=== PATIENT | female | born 1970 | race Hispanic/Latino ===

== ENCOUNTER 2019-10-31 06:20 | Day surgery (SDC) | payer BC ==
[2019-10-31] MEDS ORDERED: SODIUM CHLORIDE 0.9% 500 ML 500 ML IV SCH (07:00)
[2019-10-31 07:14] LABS: Eosinophils # (Auto) 0.2 K/mm3 (0.0-0.4); Eosinophils % (Auto) 4.7 % (0.0-4.3); Hematocrit 36.8 % (30.3-42.9); Hemoglobin 12.5 gm/dl (10.1-14.3); Lymphocytes # (Auto) 0.8 K/mm3 (1.2-5.4); Lymphocytes % (Auto) 21.5 % (13.4-35.0); Mean Corpuscular HGB Conc 34 % (30-34); Mean Corpuscular Volume 99 fl (79-97); Monocytes # (Auto) 0.4 K/mm3 (0.0-0.8); Monocytes % (Auto) 10.8 % (0.0-7.3); Platelet Count 297 K/mm3 (140-440); Red Blood Count 3.74 M/mm3 (3.65-5.03); Red Cell Distribution Width 12.9 % (13.2-15.2)
[2019-10-31 07:29] LABS: BUN/Creatinine Ratio 17; Blood Urea Nitrogen 12 mg/dL (7-17); Calcium 8.9 mg/dL (8.4-10.2); Hemolysis Index 31
[2019-10-31 07:31] LABS: INR 0.92 (0.87-1.13); Partial Thromboplastin Time 24.1 Sec. (24.2-36.6)
[2019-10-31] MEDS ORDERED: HEPARIN 10,000 UNITS/10 ML VIAL ONE (08:19)
[2019-10-31] MEDS ORDERED: HEPARIN/NS 5000 UNIT/500ML 1,000 ML IR ONE (08:19)
[2019-10-31] MEDS ORDERED: NITROGLYCERIN SYRINGE 0 ML ONE (08:19)
[2019-10-31] MEDS ORDERED: VERAPAMIL 5 MG/2 ML INJ ONE (08:19)
[2019-10-31] MEDS ORDERED: MIDAZOLAM 2 MG/2 ML INJ ONE (08:20)
[2019-10-31] MEDS ORDERED: LIDOCAINE 1%/EPINEPHRINE 1:100,000 VIAL (20 ML) INFILTRATI ONE (08:20)
[2019-10-31] MEDS ORDERED: fentaNYL 100 MCG/2 ML INJ ONE (08:20)
--- NOTE | 2019-10-31 11:03 | Short Stay Summary ---
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 She presents for angiography. - History Principal diagnosis: Pancreaticoduodenal artery aneurysm H&P: obtained from office - Allergies and Medications Current Medications: Allergies Penicillins Allergy (Intermediate, Verified 10/31/19 06:50) Rash Home Medications Medication Instructions Recorded Confirmed Last Taken Type Aspirin [Adult Aspirin] 81 mg PO DAILY 10/31/19 10/31/19 10/31/19 History Levothyroxine [Synthroid] 50 mcg PO QAM 10/31/19 10/31/19 10/31/19 History Norethindrone [Norlyda] 0.35 mg PO DAILY 10/31/19 10/31/19 10/31/19 History ZOLMitriptan [Zolmitriptan] 5 mg PO DAILY PRN 10/31/19 10/31/19 2 Weeks Ago History ~10/17/19 Active Medications Sodium Chloride (Nacl 0.9% 500 Ml) 500 mls @ 50 mls/hr IV DIRECT ANNALISE Last Admin: 10/31/19 07:36 Dose: 50 mls/hr Documented by: - Physical exam General appearance: no acute distress Lungs: Normal air movement Gastrointestinal: normal Extremities: normal temperature, normal color - Brief post op/procedure progress note Date of procedure: 10/31/19 Pre-op diagnosis: Visceral artery aneurysm Post-op diagnosis: same Procedure: 1. Ultrasound-guided access of the right common femoral artery. 2. Angiography of the right lower extremity. 3. Selection of the celiac artery with angiography. 4. Selection of the SMA with angiography Anesthesia: local (With conscious sedation) Surgeon: TARIQ LYNCH Estimated blood loss: minimal Condition: stable - Hospital course Hospital course: Patient tolerated the procedure well. No immediate postprocedural complication. 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 Remove pressure dressing on 11/01/2019 in a.m. Try to be gentle with right leg for 1 week. If you cough or bear down on toilet, apply pressure to right groin to prevent undue stress.) Diet: regular Wound: keep clean and dry Follow up with: MAXIMO RYAN [Other] - 7 Days
--- NOTE | 2019-10-31 11:04 | Operative Report ---
Operative Report Operative Report: EXAM: 1. Ultrasound-guided access of the right common femoral artery. 2. Angiography of the right lower extremity. 3. Selection of the celiac artery with angiography. 4. Selection of the SMA with angiography DATE: 10/31/2019 COMBINATION WELDER APPRENTICE: TARIQ LYNCH MD INDICATION: Visceral artery aneurysm and visceral artery stenosis requiring diagnostic angiography for further evaluation. MEDICATIONS: Please see nursing report for full details. DEVICES: No specialty devices required CONTRAST: Please see Link And Link Knitting Machine Operator report for full details PROCEDURE: The risks, benefits, and alternatives were discussed with the patient; written informed consent was obtained. The right common femoral artery was prepped and draped in a sterile fashion. Ultrasound was used to evaluate the right common femoral artery which was patent. Under direct ultrasound guidance, the right common femoral artery was accessed with a 21-gauge micropuncture needle. 0.018 inch wire was passed into the aorta. Needle was exchanged for transitional dilator. Wire was exchanged for a 0.035 inch wire. Transitional dilator was exchanged for a 5 Frisian sheath. Digital subtraction angiography was performed demonstrating an appropriate puncture, above the bifurcation and below the inferior epigastric artery. The right external iliac artery, common femoral artery, and profundofemoral artery were patent. The ostium of the right superficial femoral artery had a mild stenosis. The rest of the visualized superficial femoral artery was patent. SOS2 catheter was advanced over the wire and used to select the celiac artery. Digital subtraction angiography was performed with hand and power injection. Catheter was then used to select the SMA. Digital subtraction angiography was performed with hand and multiple obliquities with power injection. After reviewing the images, I determined that we had adequate diagnostic images for evaluating the visceral aneurysm. Sheath was then removed and pressure was held until hemostasis was achieved. Sterile dressing applied. Pressure dressing applied. Patient tolerated the procedure well. No immediate postprocedural complication. FINDINGS: Celiac artery: The celiac artery was aneurysmal with the suggestion of a small dissection flap noted within it on both injections. The splenic artery was patent and normal in caliber. The common hepatic artery was atretic in size and appeared to have some flow provided through the dorsal pancreatic artery as well as the gastroduodenal artery. There is some zoroastrianism of size in the right hepatic artery, but both the left and right hepatic arteries were not normal in size. SMA: Superior mesenteric artery was patent with pancreaticoduodenal hypertrophic branches providing flow from the superior mesenteric artery to the gastroduodenal artery and subsequently to the hepatic arteries and splenic arteries. The common hepatic artery was atretic as noted above. There is a 6 to 7 mm aneurysm arising from 1 of the pancreaticoduodenal branches. The aneurysm appears to be coming off of a side branch and not the main branch, making it amenable to coil embolization. IMPRESSION: 1. Successful selection of the celiac artery and SMA with diagnostic angiography as described above. Patient will require coil embolization of the aneurysm arising from the pancreaticoduodenal artery side branch.
[2019-10-31 13:53] VITALS: BP 105/63
== END 2019-10-31 14:15 | disposition home or self-care (01) ==
LOC: CATHLABREC 06:20
PROVIDERS: ATTEND Radiology Diagnostic Radiology
DX: K55.1 Chronic vascular disorders of intestine (principal); I77.4 Celiac artery compression syndrome; I72.8 Aneurysm of other specified arteries; Z88.0 Allergy status to penicillin; Z79.899 Other long term (current) drug therapy; Z79.82 Long term (current) use of aspirin; I77.79 Dissection of other specified artery; E03.9 Hypothyroidism, unspecified; Z98.890 Other specified postprocedural states; Z82.49 Family history of ischemic heart disease and other diseases of the circulatory system; Z82.5 Family history of asthma and other chronic lower respiratory diseases; Z83.3 Family history of diabetes mellitus; Z80.8 Family history of malignant neoplasm of other organs or systems
CPT/HCPCS: 36245; 36415; 75710; 75726; 76937; 80048; 85025; 85610; 85730; 99156; 99157; C1769; C1887; J1644; J2250; J3010; J7040; Q9967

== ENCOUNTER 2019-12-06 07:27 | Day surgery (SDC) | payer BC ==
[2019-12-06 08:54] LABS: Basophils % (Auto) 0.7 % (0.0-1.8); Eosinophils # (Auto) 0.1 K/mm3 (0.0-0.4); Eosinophils % (Auto) 3.2 % (0.0-4.3); Hematocrit 34.2 % (30.3-42.9); Hemoglobin 11.9 gm/dl (10.1-14.3); Lymphocytes # (Auto) 0.9 K/mm3 (1.2-5.4); Lymphocytes % (Auto) 19.3 % (13.4-35.0); Mean Corpuscular HGB Conc 35 % (30-34); Mean Corpuscular Volume 98 fl (79-97); Monocytes # (Auto) 0.5 K/mm3 (0.0-0.8); Platelet Count 299 K/mm3 (140-440)
[2019-12-06 09:01] LABS: INR 0.89 (0.87-1.13)
[2019-12-06 09:02] LABS: Partial Thromboplastin Time 26.3 Sec. (24.2-36.6)
[2019-12-06] MEDS: SODIUM CHLORIDE 0.9% 500 ML 500 ML IV SCH ×2 (09:03→10:40)
[2019-12-06 09:10] LABS: BUN/Creatinine Ratio 18; Blood Urea Nitrogen 11 mg/dL (7-17); Calcium 8.6 mg/dL (8.4-10.2); Hemolysis Index 13
[2019-12-06] MEDS ORDERED: HEPARIN 10,000 UNITS/10 ML VIAL ONE (09:39)
[2019-12-06] MEDS ORDERED: HEPARIN/NS 5000 UNIT/500ML 1,000 ML IR ONE (09:39)
[2019-12-06] MEDS ORDERED: fentaNYL 100 MCG/2 ML INJ ONE (09:40)
[2019-12-06] MEDS: MIDAZOLAM 2 MG/2 ML INJ ONE ×2 (10:37→10:39)
[2019-12-06] MEDS: LIDOCAINE 1%/EPINEPHRINE 1:100,000 VIAL (20 ML) INFILTRATI ONE ×2 (10:39→10:47)
--- NOTE | 2019-12-06 13:36 | Short Stay Summary ---
Short Stay Documentation Date of service: 12/06/19 Narrative H&P: 49-year-old female with pancreaticoduodenal artery aneurysm who presents for embolization. - History Principal diagnosis: Visceral artery aneurysm. H&P: obtained from office - Allergies and Medications Current Medications: Allergies Penicillins Allergy (Intermediate, Verified 10/31/19 06:50) Rash Home Medications Medication Instructions Recorded Confirmed Last Taken Type Aspirin [Adult Aspirin] 81 mg PO DAILY 10/31/19 12/06/19 12/06/19 06:00 History 1 tab Levothyroxine [Synthroid] 50 mcg PO QAM 10/31/19 12/06/19 12/06/19 06:00 History 1 tab Norethindrone [Norlyda] 0.35 mg PO DAILY 10/31/19 12/06/19 12/06/19 06:00 History 1 tab ZOLMitriptan [Zolmitriptan] 5 mg PO DAILY PRN 10/31/19 12/06/19 11/27/19 History 1 tab Active Medications Sodium Chloride (Nacl 0.9% 500 Ml) 500 mls @ 50 mls/hr IV DIRECT ANNALISE Last Admin: 12/06/19 10:40 Dose: 50 mls/hr Documented by: - Physical exam General appearance: no acute distress Lungs: Normal air movement Gastrointestinal: normal Extremities: normal temperature, normal color - Brief post op/procedure progress note Date of procedure: 12/06/19 Pre-op diagnosis: Visceral artery aneurysm Post-op diagnosis: same Procedure: 1. Ultrasound-guided access of the right femoral artery. 2. Right lower extremity arterial angiography 3. Selection of the SMA with angiography 4. Selection of the main pancreaticoduodenal branch from the SMA with angiography. 5. Selection of the anterior pancreaticoduodenal branch from the SMA with angiography 6. Selection of the aneurysm associated with the side branch of the anterior pancreaticoduodenal branch from the SMA with angiography 7. Coil embolization of the sidebranch aneurysm of the anterior pancreaticoduodenal branch with a 2 mm x 4 cm CX Azur, 3 mm x 8 cm CX Azur, 2 mm x 4 cm CX Azur 8. Repeated angiography of the SMA 9. Manual compression of the right common femoral artery Anesthesia: local (w/ conscious sedation) Surgeon: TARIQ GEORGE CRIS - Hospital course Hospital course: Patient tolerated the procedure well. No immediate postprocedural complication. No abdominal pain after procedure. No significant groin pain after procedure. - Disposition Condition at discharge: Stable Disposition: DC-01 TO HOME OR SELFCARE Short Stay Discharge Plan Activity: advance as tolerated Weight Bearing Status: Weight Bear as Tolerated (Do not lift more than 10 pounds for the next week. Please avoid stairs if possible for the next week.) Diet: regular Wound: keep clean and dry Follow up with: SIMIN RYAN [Other] - 7 Days Forms: Post Arteriogram Instruct
--- NOTE | 2019-12-06 13:47 | Operative Report ---
Operative Report Operative Report: EXAM: 1. Ultrasound-guided access of the right femoral artery. 2. Right lower extremity arterial angiography 3. Selection of the SMA with angiography 4. Selection of the main pancreaticoduodenal branch from the SMA with angiography. 5. Selection of the anterior pancreaticoduodenal branch from the SMA with angiography 6. Selection of the aneurysm associated with the side branch of the anterior pancreaticoduodenal branch from the SMA with angiography 7. Coil embolization of the sidebranch aneurysm of the anterior pancreaticoduodenal branch with a 2 mm x 4 cm CX Azur, 3 mm x 8 cm CX Azur, 2 mm x 4 cm CX Azur 8. Repeated angiography of the SMA 9. Manual compression of the right common femoral artery DATE: 12/06/2019 COMPOSITE TECHNICIAN: TARIQ LYNCH MD INDICATION: Visceral artery aneurysm a 49-year-old female with intermittent mild abdominal pain. MEDICATIONS: Please see nursing report for full details. DEVICES: 2 mm x 4 cm CX Azur coil (x2) 3 mm x 8 cm CX Azur coil (x1) CONTRAST: Please see Substance Abuse Technician report for full details. PROCEDURE: The risks, benefits, and alternatives were discussed with the patient; written informed consent was obtained. The patient's groins were prepped and draped in a sterile fashion. Right common femoral artery was evaluated under ultrasound and was patent. Under direct ultrasound guidance, the right common femoral artery was accessed with a 21- gauge micropuncture needle. 0.018 inch wire was passed into the aorta. Needle was exchanged for transitional dilator. Wire was exchanged for a 0.035 inch wire. Transitional dilator was exchanged for a 5 Serbian sheath. Digital subtraction angiography was performed demonstrating a patent right external iliac artery, common femoral artery, proximal superficial femoral artery and profundofemoral artery. The access site was slightly above the bifurcation and below the inferior epigastric artery. Omni flush catheter was used to select the abdominal aorta and then a wire was passed into the left superficial femoral artery. The [place] 1 glide catheter was then formed over the aortoiliac bifurcation. [place] 1 glide catheter was used to select the SMA and digital subtraction angiography was performed. Digital subtraction angiography demonstrated that the superior mesenteric artery was patent with anterior and posterior pancreaticoduodenal hypertrophic branches providing flow from the superior mesenteric artery to the gastroduodenal artery and subsequently to the hepatic arteries and splenic artery. The common hepatic artery was diminutive in size. There is a 6 to 7 mm aneurysm arising from the anterior pancreaticoduodenal branche. The aneurysm appears to be coming off of a side branch and not the main branch, and is now more elliptical and fusiform in character. This is changed since the last angiogram performed a month ago. Prograte microcatheter was then passed coaxially through the base catheter with the use of a Choice PT floppy wire which was then used to select the pancreaticoduodenal artery. Digital subtraction angiography was performed confirming position within the main pancreaticoduodenal artery. The anterior pancreaticoduodenal artery was then selected and digital subtraction angiography was performed confirming position within the anterior pancreaticoduodenal artery need the aneurysm. Wire was changed for a separate Choice PT floppy wire which was shaped differently and this was used to select the aneurysmal side branch of the anterior pancreaticoduodenal artery. Digital subtraction angiography was performed confirming position within the vessel and in the aneurysmal portion of the side branch of the pancreaticoduodenal artery. Multiple ulcer coils were then deployed coiling the outflow, aneurysm, and inflow of the side branch of the pancreaticoduodenal artery. Microcatheter was retracted to the anterior pancreaticoduodenal artery and digital subtraction angiography was performed demonstrating patency of the anterior pancreaticoduodenal artery. Microcatheter was removed and the base catheter was aspirated and subsequently flushed with saline. Repeated power injection was performed demonstrating patency of the anterior and posterior pancreaticoduodenal arteries with occlusion of the aneurysmal side branch off the anterior pancreaticoduodenal artery. 0.035 inch Bentson wire was passed through the [place] 1 catheter which was then removed over a wire. Wire was removed. Sheath was removed and pressure was held until hemostasis was achieved. Sterile dressing applied. Pressure dressing applied. Patient tolerated the procedure well. No immediate postprocedural complication. Patient was transferred to the outpatient procedural area. FINDINGS: Please see procedure note above. IMPRESSION: Successful coil embolization of an aneurysmal visceral artery (pancreaticoduodenal artery) as described above.
[2019-12-06 14:12] VITALS: BP 107/65
== END 2019-12-06 15:18 | disposition home or self-care (01) ==
LOC: CATHLABREC 07:27
PROVIDERS: ATTEND Radiology Diagnostic Radiology
DX: I72.8 Aneurysm of other specified arteries (principal); I77.79 Dissection of other specified artery; E03.9 Hypothyroidism, unspecified; Z98.890 Other specified postprocedural states; Z88.0 Allergy status to penicillin; Z79.82 Long term (current) use of aspirin; Z79.899 Other long term (current) drug therapy; Z82.5 Family history of asthma and other chronic lower respiratory diseases; Z82.49 Family history of ischemic heart disease and other diseases of the circulatory system
CPT/HCPCS: 36247; 36415; 37242; 75726; 75774; 80048; 85025; 85610; 85730; 99156; 99157; C1769; C1887; J1644; J2250; J3010; J7040; 36245; Q9967